=== PATIENT | male | born 1975 | race Caucasian/White ===

== ENCOUNTER 2020-01-05 19:54 | Emergency (ER) | payer OTHER ==
[~2020-01-05] VITALS: Ht 180.3 cm; Wt 97.5 kg
[2020-01-05] MEDS ORDERED: FORTAMET500 MG (20:26)
[2020-01-05] MEDS ORDERED: COZAAR50 MG (20:27)
== END 2020-01-05 23:50 | disposition home or self-care (01) ==
LOC: ER 19:54
DX: R07.89 Other chest pain (principal); M54.6 Pain in thoracic spine; E13.9 Other specified diabetes mellitus without complications; Z03.818 Encounter for observation for suspected exposure to other biological agents ruled out; Z79.84 Long term (current) use of oral hypoglycemic drugs